=== PATIENT | female | born 1990 | race Caucasian/White ===

== ENCOUNTER 2021-12-02 14:39 | Inpatient (IN) | payer OTHER, SELFPAY ==
[~2021-12-02] VITALS: Ht 154.9 cm; Wt 42.1 kg
[2021-12-02 18:00] VITALS: BP_SYST 119; BP_DIAS 80; BP_DIAS 86
[2021-12-02] MEDS: NS 1,000 ML IV SCH (18:45)
[2021-12-02] MEDS ORDERED: VYVA70CA3 PO (18:56)
[2021-12-02] MEDS ORDERED: BUPR150T12 PO (18:56)
[2021-12-02] MEDS ORDERED: BUPR1SUB35 SL (18:56)
[2021-12-02] MEDS ORDERED: HOME MED LIST COMPLETE! XX SCH (19:00)
[2021-12-02 20:00] VITALS: BP 122/58
[2021-12-02 20:39] LABS: MEAN CORPUSCULAR HEMOGLOBIN 25.6 pg (27.0-33.0); MEAN CORPUSCULAR HGB CONC 31.3 g/dl (32.0-36.5); MEAN CORPUSCULAR VOLUME 82.1 fl (80.0-96.0); PLATELET COUNT, AUTOMATED 183 10^3/uL (150-450); WHITE BLOOD COUNT 5.1 10^3/uL (4.0-10.0)
[2021-12-02 21:07] LABS: ALBUMIN 3.1 GM/DL (3.2-5.2); ALT/SGPT 8 U/L (12-78); BILIRUBIN,TOTAL 1.4 MG/DL (0.2-1.0); BLOOD UREA NITROGEN 6 MG/DL (7-18); CALCIUM LEVEL 8.4 MG/DL (8.5-10.1); CARBON DIOXIDE LEVEL 28 MEQ/L (21-32); CHLORIDE LEVEL 109 MEQ/L (98-107); CREATININE FOR GFR 0.65 MG/DL (0.55-1.30); GLOMERULAR FILTRATION RATE > 60.0 (>60); GLUCOSE, FASTING 116 MG/DL (70-100); SODIUM LEVEL 139 MEQ/L (136-145); TOTAL PROTEIN 5.6 GM/DL (6.4-8.2)
[2021-12-03 04:00] VITALS: BP 117/69
[2021-12-03] MEDS: NS 1,000 ML IV SCH (06:00)
[2021-12-03 07:10] LABS: HEMATOCRIT 30.6 % (36.0-47.0); HEMOGLOBIN 9.7 g/dl (12.0-15.5); MEAN CORPUSCULAR HGB CONC 31.7 g/dl (32.0-36.5); PLATELET COUNT, AUTOMATED 159 10^3/uL (150-450); RED BLOOD COUNT 3.73 10^6/uL (4.00-5.40); WHITE BLOOD COUNT 5.4 10^3/uL (4.0-10.0)
[2021-12-03 07:40] LABS: ALBUMIN 2.9 GM/DL (3.2-5.2); ALT/SGPT 9 U/L (12-78); BLOOD UREA NITROGEN 6 MG/DL (7-18); CALCIUM LEVEL 8.1 MG/DL (8.5-10.1); CARBON DIOXIDE LEVEL 28 MEQ/L (21-32); CHLORIDE LEVEL 111 MEQ/L (98-107); CREATININE FOR GFR 0.51 MG/DL (0.55-1.30); GLOMERULAR FILTRATION RATE > 60.0 (>60); GLUCOSE, FASTING 80 MG/DL (70-100); POTASSIUM SERUM 3.8 MEQ/L (3.5-5.1); SODIUM LEVEL 141 MEQ/L (136-145); TOTAL PROTEIN 5.1 GM/DL (6.4-8.2)
[2021-12-03 07:52] VITALS: BP 117/65
[2021-12-03 08:00] VITALS: BP 117/65
[2021-12-03] MEDS: BUPRENORPHINE/NALOXONE 2-0.5MG SUBLINGUAL TABLET(SUBOXONE) SL SCH ×2 (16:00→20:11)
[2021-12-03 16:10] VITALS: BP 106/66
[2021-12-03 20:00] VITALS: BP 106/56
[2021-12-04] MEDS: BUPRENORPHINE/NALOXONE 2-0.5MG SUBLINGUAL TABLET(SUBOXONE) SL SCH ×7 (00:03→23:45)
[2021-12-04 04:00] VITALS: BP 101/52
[2021-12-04 08:00] VITALS: BP 112/63
[2021-12-04 12:00] VITALS: BP 102/62
[2021-12-04 13:54] VITALS: BP 94/52
[2021-12-04 16:00] VITALS: BP 100/50
[2021-12-04 20:00] VITALS: BP 95/57
[2021-12-04] MEDS ORDERED: SODIUM CHLORIDE 0.9% INJ 10 ML SYR IV PRN (23:20)
[2021-12-05] MEDS ORDERED: SODIUM CHLORIDE 0.9% INJ 10 ML SYR IV SCH (09:00)
== END 2021-12-04 22:50 | DRG 812 ==
LOC: M PCU 17:39
PROVIDERS: ADMIT Internal Medicine; ATTEND Internal Medicine
DX: T50.902A Poisoning by unspecified drugs, medicaments and biological substances, intentional self-harm, initial encounter (principal); F32.A Depression, unspecified; Z92.21 Personal history of antineoplastic chemotherapy; F17.200 Nicotine dependence, unspecified, uncomplicated; F14.90 Cocaine use, unspecified, uncomplicated; Z91.19 Patient's noncompliance with other medical treatment and regimen; Z79.899 Other long term (current) drug therapy

== ENCOUNTER 2021-12-04 15:14 | Inpatient (IN) | payer OTHER ==
[~2021-12-04] VITALS: Ht 157.5 cm; Wt 41.7 kg
[~2021-12-04 15:14] MED LIST: BUPR150T12 PO; BUPR1SUB35 SL; VYVA70CA3 PO
[2021-12-04] MEDS ORDERED: ACETAMINOPHEN TAB 650MG DOSE (2X325MG) PO PRN (17:15)
[2021-12-04] MEDS ORDERED: MOM 30ML SUSPENSION UDC PO PRN (17:15)
[2021-12-04] MEDS ORDERED: MAALOX 30 ML SUSP *UDC PO PRN (17:15)
[2021-12-04] MEDS ORDERED: traZODone 50 MG TAB PO PRN (17:15)
[2021-12-05 00:10] VITALS: BP 108/66
[2021-12-05] MEDS: BUPRENORPHINE/NALOXONE 2-0.5MG SUBLINGUAL TABLET(SUBOXONE) SL SCH ×5 (04:02→20:10)
[2021-12-05] MEDS ORDERED: FOSFOMYCIN TROMETHAMINE 3 GM POWDER PACKET (MONUROL) PO ONE (05:20)
[2021-12-05] MEDS ORDERED: HOME MED LIST COMPLETE! XX SCH (08:00)
[2021-12-05] MEDS: NITROFURANTOIN (MACROBID) 100 MG CAP PO SCH ×2 (09:02→20:10)
[2021-12-05] MEDS: VENLAFAXINE **XR** 37.5 MG CAPSULE PO SCH (13:39)
[2021-12-05 14:26] LABS: ALBUMIN 3.4 GM/DL (3.2-5.2); ALT/SGPT 15 U/L (12-78); BILIRUBIN,DIRECT < 0.1 MG/DL (0.0-0.2); BILIRUBIN,TOTAL 0.9 MG/DL (0.2-1.0); TOTAL PROTEIN 7.2 GM/DL (6.4-8.2)
[2021-12-05 18:12] VITALS: BP 111/65
[2021-12-06] MEDS: BUPRENORPHINE/NALOXONE 2-0.5MG SUBLINGUAL TABLET(SUBOXONE) SL SCH ×2 (00:32→04:03)
[2021-12-06 06:41] VITALS: BP 99/78
[2021-12-06] MEDS: VENLAFAXINE **XR** 37.5 MG CAPSULE PO SCH (08:32)
[2021-12-06] MEDS: NITROFURANTOIN (MACROBID) 100 MG CAP PO SCH ×2 (08:32→21:09)
[2021-12-06] MEDS: BUPRENORPHINE/NALOXONE 8-2MG SUBLINGUAL TABLET(SUBOXONE) SL SCH (10:46)
[2021-12-07 06:36] VITALS: BP 99/64
[2021-12-07] MEDS: NITROFURANTOIN (MACROBID) 100 MG CAP PO SCH ×2 (08:10→21:12)
[2021-12-07] MEDS: VENLAFAXINE **XR** 37.5 MG CAPSULE PO SCH (08:10)
[2021-12-07] MEDS: BUPRENORPHINE/NALOXONE 8-2MG SUBLINGUAL TABLET(SUBOXONE) SL SCH (09:58)
[2021-12-07] MEDS ORDERED: MULTIVITAMINS/MINERALS THERAP 1 TAB PO ONE (11:05)
[2021-12-08 06:28] VITALS: BP 95/54
[2021-12-08] MEDS: NITROFURANTOIN (MACROBID) 100 MG CAP PO SCH ×2 (08:45→20:15)
[2021-12-08] MEDS: VENLAFAXINE **XR** 75MG CAPSULE PO SCH (08:45)
[2021-12-08] MEDS: BUPRENORPHINE/NALOXONE 8-2MG SUBLINGUAL TABLET(SUBOXONE) SL SCH (08:45)
[2021-12-08 17:41] VITALS: BP 97/56
[2021-12-08] MEDS: ARIPiprazole 2 MG TAB PO SCH (20:15)
[2021-12-09 06:50] VITALS: BP 98/58
[2021-12-09] MEDS: VENLAFAXINE **XR** 75MG CAPSULE PO SCH (09:30)
[2021-12-09] MEDS: NITROFURANTOIN (MACROBID) 100 MG CAP PO SCH ×2 (09:30→20:42)
[2021-12-09] MEDS: BUPRENORPHINE/NALOXONE 8-2MG SUBLINGUAL TABLET(SUBOXONE) SL SCH (09:31)
[2021-12-09 09:47] LABS: CHOLESTEROL RISK RATIO 4.222 (<5)
[2021-12-09 17:40] VITALS: BP 109/60
[2021-12-09] MEDS: ARIPiprazole 2 MG TAB PO SCH (20:42)
[2021-12-10 06:46] VITALS: BP 92/60
[2021-12-10] MEDS: VENLAFAXINE **XR** 75MG CAPSULE PO SCH (08:12)
[2021-12-10] MEDS: BUPRENORPHINE/NALOXONE 8-2MG SUBLINGUAL TABLET(SUBOXONE) SL SCH (08:12)
[2021-12-10 18:22] VITALS: BP 93/54
[2021-12-10] MEDS: ARIPiprazole 2 MG TAB PO SCH (20:49)
[2021-12-11 07:16] VITALS: BP 91/52
[2021-12-11] MEDS: VENLAFAXINE **XR** 75MG CAPSULE PO SCH (09:38)
[2021-12-11] MEDS: BUPRENORPHINE/NALOXONE 8-2MG SUBLINGUAL TABLET(SUBOXONE) SL SCH (09:39)
[2021-12-11 18:12] VITALS: BP 100/58
[2021-12-11] MEDS: ARIPiprazole 2 MG TAB PO SCH (20:59)
[2021-12-12] MEDS: VENLAFAXINE **XR** 75MG CAPSULE PO SCH (08:26)
[2021-12-12] MEDS: BUPRENORPHINE/NALOXONE 8-2MG SUBLINGUAL TABLET(SUBOXONE) SL SCH (08:27)
[2021-12-12] MEDS ORDERED: VENL75CA47 PO (12:58)
[2021-12-12] MEDS ORDERED: ABIL1TAB13 PO (12:58)
== END 2021-12-12 15:35 | disposition home or self-care (01) | DRG 751 ==
LOC: M ED INP 15:14 → M PSY 12-05 00:13
PROVIDERS: ADMIT Student in an Organized Health Care Education/Training Program; ATTEND Student in an Organized Health Care Education/Training Program
DX: F33.1 Major depressive disorder, recurrent, moderate (principal); F17.200 Nicotine dependence, unspecified, uncomplicated; F14.90 Cocaine use, unspecified, uncomplicated; F15.90 Other stimulant use, unspecified, uncomplicated; N39.0 Urinary tract infection, site not specified; F43.10 Post-traumatic stress disorder, unspecified; Z79.899 Other long term (current) drug therapy; Z85.3 Personal history of malignant neoplasm of breast; Z90.13 Acquired absence of bilateral breasts and nipples; Z91.19 Patient's noncompliance with other medical treatment and regimen